=== PATIENT | male | born 1980 | race Caucasian/White ===

== ENCOUNTER 2023-08-08 17:11 | Emergency (ER) | payer SELFPAY ==
[~2023-08-08] VITALS: Ht 175.3 cm; Wt 60.7 kg
[2023-08-08 19:49] LABS: BASO # 0.1 10^3/uL (0.0-0.2); BASO % 0.6 % (0.0-1.0); EOS # 0.1 10^3/uL (0.0-0.5); EOS % 1.2 % (0.0-3.0); HEMATOCRIT 40.9 % (42.0-52.0); HEMOGLOBIN 13.5 g/dl (13.5-17.5); LYMPH # 2.5 10^3/uL (1.5-5.0); LYMPH % 27.3 % (24.0-44.0); MEAN CORPUSCULAR VOLUME 87.8 fl (80.0-96.0); MONO # 0.8 10^3/uL (0.0-0.8); MONO % 8.9 % (2.0-8.0); NEUTROPHILS # 5.6 10^3/uL (1.5-8.5); NEUTROPHILS % 61.9 % (36.0-66.0); PLATELET COUNT, AUTOMATED 310 10^3/uL (150-450); RED BLOOD COUNT 4.66 10^6/uL (4.30-6.10)
[2023-08-08 19:54] LABS: ERYTHROCYTE SEDIMENTATION RATE 75 mm/hr (0-15)
[2023-08-08 20:03] LABS: BLOOD UREA NITROGEN 15 MG/DL (9-23); CALCIUM LEVEL 8.5 MG/DL (8.5-10.1); CARBON DIOXIDE LEVEL 31 MMOL/L (20-31); CHLORIDE LEVEL 103 MMOL/L (98-107); CREATININE FOR GFR 0.65 MG/DL (0.70-1.30); GLOMERULAR FILTRATION RATE > 60.0 (>60); GLUCOSE, FASTING 87 MG/DL (60-100); POTASSIUM SERUM 4.5 MMOL/L (3.5-5.1); SODIUM LEVEL 137 MMOL/L (136-145)
[2023-08-08] MEDS: DALBAVANCIN 1,500 MG in D5W 250 ML IV ONE (20:13)
[2023-08-08 21:30] VITALS: BP 130/81; TEMP 97.8; O2SAT 100
== END 2023-08-08 21:31 | disposition home or self-care (01) ==
LOC: M ED 17:11
DX: L03.114 Cellulitis of left upper limb (principal); L03.113 Cellulitis of right upper limb; F17.210 Nicotine dependence, cigarettes, uncomplicated; F12.10 Cannabis abuse, uncomplicated; Z88.0 Allergy status to penicillin
CPT/HCPCS: 80048; 85025; 85652; 86140; 87040; 96374; 99283; J0875

== ENCOUNTER 2024-04-07 05:44 | Inpatient (IN) | payer SELFPAY ==
[~2024-04-07] VITALS: Ht 172.7 cm; Wt 62.8 kg
[2024-04-07] MEDS: ONDANSETRON 4MG 2ML VIAL IV ONE (06:27)
[2024-04-07] MEDS: PANTOPRAZOLE 40MG VIAL IV ONE (06:27)
[2024-04-07] MEDS: NS 1,000 ML IV ONE ×3 (06:29→16:07)
[2024-04-07 06:45] LABS: BASO % 0.5 % (0.0-1.0); EOS % 0.2 % (0.0-3.0); HEMATOCRIT 48.1 % (42.0-52.0); HEMOGLOBIN 16.6 g/dl (13.5-17.5); LYMPH # 1.4 10^3/uL (1.5-5.0); MEAN CORPUSCULAR HEMOGLOBIN 28.7 pg (27.0-33.0); MEAN CORPUSCULAR HGB CONC 34.5 g/dl (32.0-36.5); MEAN CORPUSCULAR VOLUME 83.1 fl (80.0-96.0); NEUTROPHILS # 5.4 10^3/uL (1.5-8.5); NEUTROPHILS % 67.9 % (36.0-66.0); PLATELET COUNT, AUTOMATED 483 10^3/uL (150-450); RED BLOOD COUNT 5.79 10^6/uL (4.30-6.10)
[2024-04-07 07:15] LABS: ALBUMIN 4.1 G/DL (3.2-5.2); BILIRUBIN,DIRECT 0.3 MG/DL (<0.4); BILIRUBIN,TOTAL 0.7 MG/DL (0.3-1.2); CALCIUM LEVEL 9.8 MG/DL (8.5-10.1); CREATININE FOR GFR 1.41 MG/DL (0.70-1.30); GLOMERULAR FILTRATION RATE 57.9 (>60); POTASSIUM SERUM 4.8 MMOL/L (3.5-5.1); TOTAL PROTEIN 9.1 G/DL (5.7-8.2)
[2024-04-07] MEDS ORDERED: ISOVUE-370 76% 100ML VIAL As Ordered ONE (07:53)
[2024-04-07] MEDS: MORPHINE 4 MG/ML 1ML VIAL IV ONE (08:17)
[2024-04-07] MEDS ORDERED: HOME MED LIST COMPLETE! XX SCH (08:20)
[2024-04-07 08:40] LABS: HEMOGLOBIN A1c 5.6 % (4.0-6.0)
[2024-04-07] MEDS ORDERED: METOPROLOL 5 MG/5 ML VIAL IV ONE (09:00)
[2024-04-07] MEDS: METOPROLOL 5 MG/5 ML VIAL IV STA (09:12)
[2024-04-07] MEDS: KETOROLAC 30 MG/ML 1ML VIAL IV SCH (09:13)
[2024-04-07] MEDS ORDERED: NALOXONE 2MG/2ML SYRINGE As Ordered ONE (09:28)
[2024-04-07 09:43] LABS: SODIUM,RANDOM URINE 19 MMOL/L
[2024-04-07 09:52] LABS: OSMOLALITY URINE 768 MOSM/KG (50-1400)
[2024-04-07 10:00] VITALS: BP 159/98; TEMP 98; O2SAT 98
[2024-04-07] MEDS: METOPROLOL 5 MG/5 ML VIAL IV SCH (10:22)
[2024-04-07 10:37] VITALS: BP 142/89
[2024-04-07 12:00] VITALS: BP 136/84; TEMP 97.4; O2SAT 96
[2024-04-07] MEDS: hydrALAZINE 20MG/ML 1ML VIAL IV SCH (12:00)
[2024-04-07 15:27] VITALS: BP 134/84; TEMP 97.4; O2SAT 98
[2024-04-07] MEDS ORDERED: NALOXONE INJ 0.4MG/1ML VIAL IV PRN (15:50)
[2024-04-07] MEDS: HYDROMORPHONE HCL 0.5 MG/ 0.5 ML SYRINGE IV ONE (16:06)
[2024-04-07 16:51] LABS: BLOOD UREA NITROGEN 60 MG/DL (9-23); CALCIUM LEVEL 8.4 MG/DL (8.5-10.1); CARBON DIOXIDE LEVEL 30 MMOL/L (20-31); CHLORIDE LEVEL 92 MMOL/L (98-107); CREATININE FOR GFR 1.22 MG/DL (0.70-1.30); GLOMERULAR FILTRATION RATE > 60.0 (>60); GLUCOSE, FASTING 95 MG/DL (60-100); POTASSIUM SERUM 3.9 MMOL/L (3.5-5.1); SODIUM LEVEL 132 MMOL/L (136-145)
[2024-04-07] MEDS: D5W/0.45% SODIUM CHLORIDE 1,000 ML IV SCH (16:57)
[2024-04-07 20:54] VITALS: BP 139/86; TEMP 97.1; O2SAT 96
[2024-04-07] MEDS: MORPHINE 4 MG/ML 1ML VIAL IV PRN (21:55)
[2024-04-08] VITALS (7 sets, daily range): BP systolic 133–150; BP diastolic 80–96; TEMP 97.8–98.8; O2SAT 92–97
[2024-04-08 00:52] LABS: BLOOD UREA NITROGEN 54 MG/DL (9-23); CALCIUM LEVEL 8.2 MG/DL (8.5-10.1); CARBON DIOXIDE LEVEL 31 MMOL/L (20-31); CHLORIDE LEVEL 96 MMOL/L (98-107); CREATININE FOR GFR 0.91 MG/DL (0.70-1.30); GLOMERULAR FILTRATION RATE > 60.0 (>60); GLUCOSE, FASTING 117 MG/DL (60-100); POTASSIUM SERUM 3.8 MMOL/L (3.5-5.1); SODIUM LEVEL 132 MMOL/L (136-145)
[2024-04-08 05:24] LABS: BASO % 0.5 % (0.0-1.0); EOS # 0.1 10^3/uL (0.0-0.5); EOS % 0.9 % (0.0-3.0); HEMATOCRIT 41.5 % (42.0-52.0); LYMPH # 1.3 10^3/uL (1.5-5.0); LYMPH % 17.6 % (24.0-44.0); MEAN CORPUSCULAR HEMOGLOBIN 28.2 pg (27.0-33.0); MEAN CORPUSCULAR HGB CONC 34.2 g/dl (32.0-36.5); MEAN CORPUSCULAR VOLUME 82.5 fl (80.0-96.0); MONO % 12.6 % (2.0-8.0); NEUTROPHILS # 5.1 10^3/uL (1.5-8.5); NEUTROPHILS % 68.1 % (36.0-66.0); PLATELET COUNT, AUTOMATED 386 10^3/uL (150-450); RED BLOOD COUNT 5.03 10^6/uL (4.30-6.10); WHITE BLOOD COUNT 7.5 10^3/uL (4.0-10.0)
[2024-04-08 05:25] LABS: HEMOGLOBIN 14.2 g/dl (13.5-17.5)
[2024-04-08] MEDS: PANTOPRAZOLE 40MG VIAL IV STA (05:25)
[2024-04-08 05:27] LABS: ALBUMIN 3.2 G/DL (3.2-5.2); ALKALINE PHOSPHATASE 90 U/L (40-129); ALT/SGPT 81 U/L (7.0-40); AST/SGOT 43 U/L (<34); BILIRUBIN,TOTAL 0.6 MG/DL (0.3-1.2); BLOOD UREA NITROGEN 49 MG/DL (9-23); CALCIUM LEVEL 8.6 MG/DL (8.5-10.1); CARBON DIOXIDE LEVEL 32 MMOL/L (20-31); CHLORIDE LEVEL 93 MMOL/L (98-107); CREATININE FOR GFR 0.79 MG/DL (0.70-1.30); GLOMERULAR FILTRATION RATE > 60.0 (>60); GLUCOSE, FASTING 127 MG/DL (60-100); MAGNESIUM LEVEL 2.7 MG/DL (1.8-2.4); POTASSIUM SERUM 3.6 MMOL/L (3.5-5.1); SODIUM LEVEL 130 MMOL/L (136-145); TOTAL PROTEIN 7.1 G/DL (5.7-8.2)
[2024-04-08] MEDS ORDERED: PANTOPRAZOLE 40MG VIAL IV SCH (09:00)
[2024-04-08] MEDS: ONDANSETRON 4MG 2ML VIAL IV PRN (10:13)
[2024-04-08] MEDS: CETACAINE SPRAY 5GM TOP ONE (11:21)
[2024-04-08] MEDS ORDERED: ACETAMINOPHEN *IV* 1,000 MG in IV 1 EA IV PRN (17:15)
[2024-04-08] MEDS ORDERED: NS 1,000 ML IV SCH (17:15)
[2024-04-08] MEDS ORDERED: MORPHINE 4 MG/ML 1ML VIAL IV PRN (17:15)
[2024-04-09] MEDS: NS 1,000 ML IV SCH (00:10)
[2024-04-09 03:29] VITALS: BP 134/82; TEMP 97.5; O2SAT 96
[2024-04-09 05:58] LABS: BASO % 0.4 % (0.0-1.0); EOS % 0.5 % (0.0-3.0); HEMATOCRIT 40.4 % (42.0-52.0); HEMOGLOBIN 13.8 g/dl (13.5-17.5); LYMPH % 12.5 % (24.0-44.0); MEAN CORPUSCULAR HEMOGLOBIN 28.3 pg (27.0-33.0); MEAN CORPUSCULAR HGB CONC 34.2 g/dl (32.0-36.5); MONO # 0.7 10^3/uL (0.0-0.8); MONO % 9.1 % (2.0-8.0); NEUTROPHILS % 77.1 % (36.0-66.0); PLATELET COUNT, AUTOMATED 359 10^3/uL (150-450); RED BLOOD COUNT 4.87 10^6/uL (4.30-6.10); WHITE BLOOD COUNT 7.8 10^3/uL (4.0-10.0)
[2024-04-09 06:11] LABS: ALKALINE PHOSPHATASE 81 U/L (40-129); ALT/SGPT 55 U/L (7.0-40); AST/SGOT 22 U/L (<34); BILIRUBIN,TOTAL 0.5 MG/DL (0.3-1.2); BLOOD UREA NITROGEN 28 MG/DL (9-23); CALCIUM LEVEL 8.5 MG/DL (8.5-10.1); CARBON DIOXIDE LEVEL 32 MMOL/L (20-31); CHLORIDE LEVEL 95 MMOL/L (98-107); CREATININE FOR GFR 0.62 MG/DL (0.70-1.30); GLOMERULAR FILTRATION RATE > 60.0 (>60); GLUCOSE, FASTING 94 MG/DL (60-100); MAGNESIUM LEVEL 2.3 MG/DL (1.8-2.4); POTASSIUM SERUM 3.5 MMOL/L (3.5-5.1); SODIUM LEVEL 134 MMOL/L (136-145); TOTAL PROTEIN 6.5 G/DL (5.7-8.2)
[2024-04-09 07:31] VITALS: BP 125/80; TEMP 98; O2SAT 96
[2024-04-09] MEDS: PANTOPRAZOLE 40MG VIAL IV SCH (09:59)
[2024-04-09] MEDS: SENNA 8.6 MG TAB (SENOKOT) PO SCH (10:00)
[2024-04-09] MEDS ORDERED: GLUCOSE 4 GM CHEW PO PRN (10:00)
[2024-04-09] MEDS: DOCUSATE SODIUM 100MG CAPSULE PO SCH (10:00)
[2024-04-09] MEDS ORDERED: GLUCAGON INJ 1MG VIAL SC PRN (10:00)
[2024-04-09] MEDS ORDERED: DEXTROSE 50% 50ML SYRINGE IV PRN (10:00)
[2024-04-09 10:45] VITALS: BP 128/82
[2024-04-09] MEDS: LR 1,000 ML IV SCH (10:45)
[2024-04-09] MEDS: cloNIDine HCL 0.1 MG/24 HR PATCH TOP SCH (10:45)
[2024-04-09 12:34] VITALS: BP 135/80; TEMP 97.7; O2SAT 96
[2024-04-09] MEDS: KETOROLAC 30 MG/ML 1ML VIAL IV PRN (18:51)
[2024-04-09 20:00] VITALS: BP_SYST 126; BP_SYST 141; BP_DIAS 72; BP_DIAS 78; TEMP 97.5; TEMP 97.8; O2SAT 18; O2SAT 98
[2024-04-10] MEDS: METOCLOPRAMIDE INJ 10MG/2ML VIAL IV ONE (08:00)
[2024-04-10 08:03] VITALS: BP 128/80; TEMP 97.9; O2SAT 98
[2024-04-10] MEDS ORDERED: GASTROGRAFIN SOLUTION 30ML As Ordered ONE (08:04)
[2024-04-10 08:12] LABS: BASO % 0.3 % (0.0-1.0); EOS % 0.3 % (0.0-3.0); HEMATOCRIT 38.6 % (42.0-52.0); HEMOGLOBIN 13.1 g/dl (13.5-17.5); LYMPH # 0.9 10^3/uL (1.5-5.0); LYMPH % 8.6 % (24.0-44.0); MEAN CORPUSCULAR HEMOGLOBIN 28.9 pg (27.0-33.0); MEAN CORPUSCULAR HGB CONC 33.9 g/dl (32.0-36.5); MEAN CORPUSCULAR VOLUME 85.2 fl (80.0-96.0); MONO # 0.7 10^3/uL (0.0-0.8); MONO % 6.3 % (2.0-8.0); NEUTROPHILS # 8.9 10^3/uL (1.5-8.5); PLATELET COUNT, AUTOMATED 352 10^3/uL (150-450); RED BLOOD COUNT 4.53 10^6/uL (4.30-6.10); WHITE BLOOD COUNT 10.6 10^3/uL (4.0-10.0)
[2024-04-10 08:44] LABS: ALBUMIN 2.9 G/DL (3.2-5.2); ALKALINE PHOSPHATASE 80 U/L (40-129); ALT/SGPT 51 U/L (7.0-40); AST/SGOT 30 U/L (<34); BILIRUBIN,TOTAL 0.5 MG/DL (0.3-1.2); BLOOD UREA NITROGEN 36 MG/DL (9-23); CALCIUM LEVEL 8.8 MG/DL (8.5-10.1); CARBON DIOXIDE LEVEL 31 MMOL/L (20-31); CHLORIDE LEVEL 95 MMOL/L (98-107); GLOMERULAR FILTRATION RATE > 60.0 (>60); GLUCOSE, FASTING 62 MG/DL (60-100); MAGNESIUM LEVEL 2.4 MG/DL (1.8-2.4); POTASSIUM SERUM 4.1 MMOL/L (3.5-5.1); SODIUM LEVEL 135 MMOL/L (136-145); TOTAL PROTEIN 6.6 G/DL (5.7-8.2)
== END 2024-04-10 09:15 | disposition left against medical advice (07) | DRG 247 ==
LOC: M ED 05:44 → M ED INP 08:46 → M PCU 10:04
PROVIDERS: ADMIT General Practice; ATTEND General Practice
DX: K56.601 Complete intestinal obstruction, unspecified as to cause (principal); F17.200 Nicotine dependence, unspecified, uncomplicated; F12.10 Cannabis abuse, uncomplicated; E86.0 Dehydration; R73.9 Hyperglycemia, unspecified; R74.01 Elevation of levels of liver transaminase levels; R80.9 Proteinuria, unspecified; K82.8 Other specified diseases of gallbladder; N17.9 Acute kidney failure, unspecified; E87.3 Alkalosis; E87.1 Hypo-osmolality and hyponatremia; Z88.0 Allergy status to penicillin

== ENCOUNTER 2024-05-20 19:05 | Emergency (ER) | payer SELFPAY ==
[~2024-05-20] VITALS: Ht 172.7 cm; Wt 63.3 kg
[2024-05-20 21:17] VITALS: BP 118/54; O2SAT 98
== END 2024-05-20 21:22 | disposition left against medical advice (07) ==
LOC: M ED 19:05 → EDBD 19:05 → M ED 21:22
DX: T40.1X1A Poisoning by heroin, accidental (unintentional), initial encounter (principal); F11.10 Opioid abuse, uncomplicated; Z88.0 Allergy status to penicillin; Z53.9 Procedure and treatment not carried out, unspecified reason

== ENCOUNTER 2025-02-15 00:02 | Emergency (ER) | payer SELFPAY ==
[2025-02-15] MEDS: NS (Normal Saline) 0.9% 1,000 ML IV ONE (00:50)
[2025-02-15 06:38] LABS: BASO # 0.0 10^3/uL (0.0-0.2); BASO % 0.4 % (0.0-1.0); EOS # 0.1 10^3/uL (0.0-0.5); EOS % 0.6 % (0.0-3.0); LYMPH # 1.1 10^3/uL (1.5-5.0); LYMPH % 13.9 % (24.0-44.0); MONO # 0.7 10^3/uL (0.0-0.8); MONO % 9.3 % (2.0-8.0); NEUTROPHILS # 5.9 10^3/uL (1.5-8.5); NEUTROPHILS % 75.4 % (36.0-66.0); PLATELET COUNT, AUTOMATED 306 10^3/uL (150-450)
[2025-02-15 07:02] LABS: CALCIUM LEVEL 8.8 MG/DL (8.5-10.1); CARBON DIOXIDE LEVEL 29 MMOL/L (20-31); CHLORIDE LEVEL 103 MMOL/L (98-107); CPK CREATINE PHOSPHOKINASE 603 U/L (46-171); CREATININE FOR GFR 0.78 MG/DL (0.70-1.30); GLOMERULAR FILTRATION RATE > 90.0 (>60); MAGNESIUM LEVEL 2.1 MG/DL (1.8-2.4); POTASSIUM SERUM 3.8 MMOL/L (3.5-5.1); SODIUM LEVEL 141 MMOL/L (136-145)
[2025-02-15 09:21] LABS: BARBITURATES URINE NEGATIVE (NEGATIVE); BENZODIAZEPINES URINE NEGATIVE (NEGATIVE); CANNABINOIDS URINE NEGATIVE (NEGATIVE); METHADONE URINE NEGATIVE (NEGATIVE); OPIATES URINE NEGATIVE (NEGATIVE); PHENCYCLIDINE URINE NEGATIVE (NEGATIVE)
[2025-02-15 09:26] LABS: AMPHETAMINES LEVEL URINE POSITIVE (NEGATIVE); COCAINE METABOLITE URINE POSITIVE (NEGATIVE)
[2025-02-15 09:45] VITALS: O2SAT 97
[2025-02-15 09:53] VITALS: BP 110/71; TEMP 96.8
== END 2025-02-15 10:02 | disposition home or self-care (01) ==
LOC: M ED 00:02
DX: F11.10 Opioid abuse, uncomplicated (principal); Z88.0 Allergy status to penicillin
CPT/HCPCS: 70450; 80048; 80307; 82550; 83735; 85025; 96374; 96375; 99285; J2060